=== PATIENT | male | born 1995 | race Caucasian/White ===

== ENCOUNTER 2022-02-28 12:56 | Emergency (ER) | payer BC ==
[2022-02-28] MEDS ORDERED: PREDNISONE 20 M20 MG PO (16:35)
[2022-02-28] MEDS ORDERED: PEPCID40 MG PO (16:35)
== END 2022-02-28 17:10 | disposition home or self-care (01) ==
LOC: ER1 12:56
DX: U07.1 COVID-19 (principal); L50.9 Urticaria, unspecified; I10 Essential (primary) hypertension; Z88.0 Allergy status to penicillin; Z88.8 Allergy status to other drugs, medicaments and biological substances
CPT/HCPCS: 99283